=== PATIENT | male | born 1995 | race Two or more races ===

== ENCOUNTER → 2023-10-19 | Outpatient (CLI) | payer MEDICAID, SELFPAY ==
--- NOTE | 2023-10-19 08:10 | TONS_PTH ---
PATHOLOGY RESULTS PATIENT: NOLVIA AGUIRRE [facility] U#:[id number] AGE/SX: 27/M ROOM: RE10/19/[address]: Dr. Kenneth Gorman MD : 1995 BED: DIS: 10/19/2023 SPEC #: [id number] RECD: 10/20/23 08:58 STATUS: MARIA INES FANNIEFay #: [id number] WILLIAM: 10/19/23 08:[address]: Kenneth Gorman DEPT: SURGICAL PATHOLOGY RECD BY: Radha Rich ENTERED: 10/20/23 08:58 SP TYPE: TONSILS OTHR DR: No Primary Care Phys [facility] Tissues: Tonsil, NOS Procedures: Surgery Specimen Level III HEADER OPERATION: Tonsillectomy PRE-OP DIAGNOSIS: Chronic tonsillitis TISSUE SUBMITTED: Bilateral tonsils, right tonsil pinned MICROSCOPIC DIAGNOSIS Bilateral tonsils, tonsillectomy: Reactive lymphoid hyperplasia, consistent with chronic tonsillitis. SJ:tootie 10/21/2023 MICROSCOPIC DESCRIPTION Slides are reviewed. GROSS DESCRIPTION Received is one container labeled with the patient's name and designated tonsils - pin on right are two tonsils that in aggregate weigh 12.9 gm. The right tonsil has a pin on it and measures 3.5 x 2.5 x 1.5 cm. The left tonsil measures 3.5 x 2.0 x 1.5 cm. Both tonsils are similar in appearance. The external surfaces are pink-schmitz, smooth, glistening and somewhat lobulated. Focally they are hemorrhagic, granular and bear cautery artifact. Serial cross sections through the tonsils reveal normal tonsillar architecture. Sections are submitted in two cassettes as follows: 1 - right tonsil, 2 - left tonsil. / Sandra 10/20/2023 TC:3 CPT: 73414 x2
== END | disposition home or self-care (01) ==
PROVIDERS: Referring Provider Otolaryngology; Visit Provider Otolaryngology
DX: J35.01 Chronic tonsillitis (principal)
CPT/HCPCS: 88304